=== PATIENT | male | born 1970 | race Two or more races ===

== ENCOUNTER 2023-06-19 10:20 | Outpatient (CLI) | payer OTHER | END 2023-06-19 10:30 | disposition home or self-care (01) | LOC: PPH VACUNA 10:20 | PROVIDERS: ATTEND Emergency Medicine Pediatric Emergency Medicine | DX: Z23 Encounter for immunization (principal) | CPT/HCPCS: 90686; G0008 ==

== ENCOUNTER 2025-03-17 12:36 | Outpatient (CLI) | payer OTHER | END 2025-03-17 13:00 | disposition home or self-care (01) | LOC: MRI 12:36 | PROVIDERS: ATTEND Emergency Medicine Pediatric Emergency Medicine | DX: M25.562 Pain in left knee (principal) | CPT/HCPCS: 73721 ==

== ENCOUNTER 2025-06-28 14:15 | Outpatient (CLI) | payer OTHER | END 2025-06-28 14:20 | disposition home or self-care (01) | LOC: SONOGRAMA 14:15 | DX: M25.512 Pain in left shoulder (principal) ==